=== PATIENT | female | born 1985 | race African-American/Black ===

== ENCOUNTER 2016-04-16 18:46 | Emergency (ER) | payer OTHER ==
[~2016-04-16] VITALS: Ht 165.1 cm; Wt 91.5 kg
[~2016-04-16 18:46] MED LIST: ENDOCET 5-3251 EACH PO; FLINTSTONES1 TABLET PO; MOTRIN800 MG PO; Motrin PO; Percocet 5/325,Endoc PO; TAMIFLU75 MG PO
[2016-04-16 20:36] LABS: CHLORIDE 109 mEq/L (99-109); POTASSIUM 3.5 mEq/L (3.7-5.4); SODIUM 137 mEq/L (136-147)
[2016-04-16 20:38] LABS: GLUCOSE 79 mg/dL (70-99)
[2016-04-16 20:39] LABS: ANION GAP 12 MEQ/L (2-14)
[2016-04-16 20:40] LABS: TOTAL BILIRUBIN 1.4 mg/dL (0.0-1.0)
[2016-04-16 20:41] LABS: ALKALINE PHOSPHATASE 207 IU/L (3-129)
[2016-04-16 20:41] LABS: ADD MIUA? YES; BILIRUBIN NEGATIVE; BLOOD NEGATIVE; COLOR YELLOW ((YELLOW)); GLUCOSE (STRIP) NEGATIVE; KETONES >=80; LEUKOCYTES SMALL; NITRITE NEGATIVE; PH, URINE 5.5 (5-8); PROTEIN (STRIP) NEGATIVE; SPECIFIC GRAVITY 1.021 (1.000-1.030); UROBILINOGEN 0.2 MG/DL (0.2-1.0)
[2016-04-16 20:42] LABS: GFR ESTIMATE (CALCULATED) > 59 mL/min/
[2016-04-16 20:43] LABS: UREA NITROGEN (BUN) 6 mg/dL (9-23)
[2016-04-16 20:45] LABS: HEMATOCRIT 39.4 % (36.0-46.0); LIPASE 62 U/L (1.0-51.0); MCV 82.8 FL (83-99); PLATELET COUNT 100 K/uL (156-360); RBC DIS.WIDTH-CV 13.6 % (11.8-14.6); RBC DIS.WIDTH-SD 39.8 % (39-53); RED BLOOD COUNT 4.76 M/uL (3.80-5.20); WHITE BLOOD COUNT 11.1 K/uL (4.1-10.2)
[2016-04-16 21:04] LABS: BACTERIA 1+ /HPF; CASTS NONE SEEN /LPF; CRYSTALS NONE SEEN; EPITHELIAL CELLS 2+ /HPF; MUCUS 1+ /LPF; RED BLOOD CELLS 0-5 /HPF (0-5); WHITE BLOOD CELLS 0-5 /HPF (0-5)
[2016-04-17 00:51] LABS: DIRECT BILIRUBIN 0.2 mg/dL (0.0-0.3)
[2016-04-17] MEDS ORDERED: ZOFRAN ODT4 MG PO (01:23)
[2016-04-17 02:06] VITALS: BP 117/58
== END 2016-04-17 02:07 | disposition home or self-care (01) ==
LOC: EME 18:46 → EXP 19:49
PROVIDERS: Physician Assistant
DX: O99.89 Other specified diseases and conditions complicating pregnancy, childbirth and the puerperium (principal); R10.11 Right upper quadrant pain; R11.2 Nausea with vomiting, unspecified; Z3A.37 37 weeks gestation of pregnancy
CPT/HCPCS: 76705; 80053; 81003; 82248; 83690; 85027; 99281; 99285; J2405; J7030

== ENCOUNTER 2016-05-03 08:54 | Inpatient (IN) | payer OTHER ==
[~2016-05-03] VITALS: Ht 165.1 cm; Wt 92.2 kg
[2016-05-03] VITALS (9 sets, daily range): BP systolic 116–132; BP diastolic 55–76
[~2016-05-03 08:54] MED LIST changes: +PRENATAL TABLE1 EAC3 PO; +ZOFRAN ODT4 MG PO
[2016-05-03 09:47] LABS: EOSINOPHIL (%) 1.7 % (0-5); EOSINOPHIL COUNT 0.2 K/uL (0-0.3); IMMATURE GRANULOCYTE (%) 1.3 % (0.0-0.7); IMMATURE GRANULOCYTE COUNT 0.1 K/uL; LYMPHOCYTE COUNT 2.1 K/uL (1.0-2.8); MONOCYTE (%) 8.7 % (3-12); MONOCYTE COUNT 0.8 K/uL (0-0.8); NEUTROPHIL (%) 64.6 % (45-76); NEUTROPHIL COUNT 5.8 K/uL (1.8-6.4)
[2016-05-03 10:42] LABS: HEMATOLOGY COMMENT 1 REV; PLAT.SUFFICIENCY DECREASED; USER ID DLS
[2016-05-03 11:03] LABS: HEMATOCRIT 35.7 % (36.0-46.0); MCH 28.9 PG (29.0-34.0); MCHC 34.5 G/DL (30.0-36.0); RBC DIS.WIDTH-CV 13.6 % (11.8-14.6); RBC DIS.WIDTH-SD 40.7 % (39-53); RED BLOOD COUNT 4.25 M/uL (3.80-5.20)
[2016-05-03 11:04] LABS: PLATELET COUNT UNABLE TO REPORT K/uL (156-360)
[2016-05-04 03:00] VITALS: BP 119/57
[2016-05-04 07:16] VITALS: BP 118/60
[2016-05-04 07:21] LABS: EOSINOPHIL (%) 1.4 % (0-5); EOSINOPHIL COUNT 0.1 K/uL (0-0.3); IMMATURE GRANULOCYTE (%) 0.7 % (0.0-0.7); IMMATURE GRANULOCYTE COUNT 0.1 K/uL; LYMPHOCYTE COUNT 1.7 K/uL (1.0-2.8); MONOCYTE (%) 13.2 % (3-12); MONOCYTE COUNT 1.2 K/uL (0-0.8); NEUTROPHIL (%) 65.7 % (45-76); NEUTROPHIL COUNT 5.8 K/uL (1.8-6.4)
[2016-05-04 08:05] LABS: HEMATOCRIT 32.6 % (36.0-46.0); MCH 28.1 PG (29.0-34.0); MCHC 33.1 G/DL (30.0-36.0); MCV 84.7 FL (83-99); MEAN PLAT.VOLUME 13.8 uM^3 (9.5-12.4); PLAT.SUFFICIENCY DECREASED; RBC DIS.WIDTH-CV 13.7 % (11.8-14.6); RBC DIS.WIDTH-SD 41.8 % (39-53); RED BLOOD COUNT 3.85 M/uL (3.80-5.20); USER ID TLW; WHITE BLOOD COUNT 8.9 K/uL (4.1-10.2)
[2016-05-04 08:24] LABS: PLATELET COUNT 101 K/uL (156-360)
[2016-05-04 10:46] VITALS: BP 110/48
[2016-05-04 15:23] VITALS: BP 124/67
[2016-05-04 19:09] VITALS: BP 117/53
[2016-05-04 23:08] VITALS: BP 105/54
[2016-05-05 03:28] VITALS: BP 115/54
[2016-05-05 07:53] VITALS: BP 116/54
[2016-05-05] MEDS ORDERED: ENDOCET 5-3251 EACH PO (09:47)
[2016-05-05] MEDS ORDERED: IBUPROFEN800 MG PO (09:47)
[2016-05-05 11:05] VITALS: BP 125/59
== END 2016-05-05 13:58 | disposition home or self-care (01) | DRG 765 ==
LOC: 2WEST 08:54 → 2SOUTH 09:40 → 2WEST 05-05 13:58
PROVIDERS: Obstetrics & Gynecology
PROC: 10D00Z1 Extraction of Products of Conception, Low, Open Approach (ICD-10-PCS; principal; 2016-05-03)
DX: O34.211 Maternal care for low transverse scar from previous cesarean delivery (principal); O99.12 Other diseases of the blood and blood-forming organs and certain disorders involving the immune mechanism complicating childbirth; D69.59 Other secondary thrombocytopenia; O99.824 Streptococcus B carrier state complicating childbirth; O69.81X0 Labor and delivery complicated by cord around neck, without compression, not applicable or unspecified; Z3A.39 39 weeks gestation of pregnancy; Z37.0 Single live birth; O99.354 Diseases of the nervous system complicating childbirth; G43.809 Other migraine, not intractable, without status migrainosus
CPT/HCPCS: 85025; 86850; 86900; 86901; J1200; J1580; J1885; J2274; J2405; J7050; J7120